=== PATIENT | female | born 1995 | race Caucasian/White ===

== ENCOUNTER 2018-11-28 15:44 | Inpatient (IN) ==
[2018-11-28] MEDS ORDERED: NALBUPHINE HCL 10 MG/ML AMPUL IV PRN (18:20)
[2018-11-28] MEDS ORDERED: RINGER'S SOLUTION,LACTATED 1,000 ML IV ONE (18:20)
[2018-11-28] MEDS ORDERED: MISOPROSTOL 100 MCG TABLET VG PRN (18:20)
[2018-11-28] MEDS ORDERED: LIDOCAINE HCL 50 ML VIAL PERI PRN (18:20)
[2018-11-28] MEDS ORDERED: ONDANSETRON 4 MG TAB.RAPDIS PO PRN (18:20)
[2018-11-28] MEDS ORDERED: OXYTOCIN/DEXTROSE 5%-WATER 30 UNITS/500 ML BAG IV ONE (18:20)
[2018-11-28 19:13] LABS: Cocaine Ur Negative (NEGATIVE); Urine Barbiturate Negative (NEGATIVE); Urine Benzodiazepines Negative (NEGATIVE); Urine Opiates Negative (NEGATIVE); Urine PCP Negative (NEGATIVE); Urine THC Negative (NEGATIVE)
[2018-11-28] MEDS: RINGER'S SOLUTION,LACTATED 1,000 ML IV PRN (20:15)
[2018-11-29] MEDS: RINGER'S SOLUTION,LACTATED 1,000 ML IV PRN ×3 (03:58→23:03)
--- NOTE | 2018-11-29 08:56 | HP ---
Chief Complaint - Chief Complaint Date of Service: 11/29/18 Time of Service: 08:49 Chief Complaint: Induction of labor History of Present Illness: 23 yo @ 40w 3d who presents to labor and delivery for a medical induction of labor due to post due date. She denies vaginal bleeding or loss of fluid. She is florecita on pitocin. Fetus is active. Medical History (Last Reviewed 11/27/18 @ 09:19 by Abhishek Beal RN) Anxiety Onset Date: Unknown History of wisdom tooth extraction Pharyngitis Onset Date: ~10/03/12 Soft tissue injury of back Onset Date: ~06/30/14 Chiari malformation Onset Date: ~2011 Surgical History: Surgical History (Last Reviewed 11/27/18 @ 09:19 by Abhishek Beal RN) No pertinent past surgical history History of tympanoplasty Onset Date: ~1997 Family History: Family History (Last Reviewed 11/27/18 @ 09:19 by Abhishek Beal RN) Mother Alive and well Father Alive and well Grandfather Cancer Lung CA Social History: Preferred Language Sinhala Smoking Status Never smoker (Last Updated 11/27/18 @ 11:50 by Alexa Steward MD) No Social History Section defined Review Of Systems (GEN) - Review of Systems Generalized/Overall Review: Present: No Symptoms Reported Misc: All systems neg except as marked Allergies/Adverse Reactions: Allergies Allergy/AdvReac Type Severity Reaction Status Date / Time No Known Allergies Allergy Verified 11/27/18 09:19 Home Medications: HOME MEDICATIONS vitamin,calcium,eufhzrdz-udrn-czsng acid tablet 1 tab PO DAILY 05/10/18 [Last Taken 11/28/18] calcium carbonate 200 mg calcium (500 mg) chewable tablet 200 mg PO TID tab 07/30/18 [Last Taken 11/28/18] omeprazole 20 mg capsule,delayed release 20 mg PO DAILY #30 cap 08/27/18 [Last Taken 11/28/18] Exam - Exam Vital Signs: Vital Signs - Last Taken Temp 36.5 C 11/28/18 19:09 Pulse 96 11/28/18 19:09 Resp 16 11/28/18 19:09 BP 128/84 11/28/18 19:09 Pulse Ox 97 11/28/18 19:09 Constitutional: Present: Alert, Oriented x3, Cooperative, No distress Respiratory: Present: lungs clear, normal breath sounds Cardiovascular/Chest: Present: regular rate, rhythm, no murmur Abdomen: Present: soft, nontender, nondistended Extremity: Present: non-tender, no calf tenderness Skin Exam: Present: normal color, warm/dry, no cyanosis Appearance: Present: appropriate appearance Eye contact: Present: cooperative Thoughts: Present: normal thought pattern Diagnostic Studies: Laboratory Results Urine Opiates Screen Negative (NEGATIVE) 11/28/18 Unknown Barbiturate Screen Negative (NEGATIVE) 11/28/18 Unknown Ur Phencyclidine Scrn Negative (NEGATIVE) 11/28/18 Unknown Urine Amphetamine Negative (NEGATIVE) 11/28/18 Unknown U Benzodiazepines Scrn Negative (NEGATIVE) 11/28/18 Unknown Urine Cocaine Screen Negative (NEGATIVE) 11/28/18 Unknown Urine Marijuana (THC) Negative (NEGATIVE) 11/28/18 Unknown Blood Type AB Positive 11/28/18 18:50 Antibody Screen Negative 11/28/18 18:50 Assessment/Plan - Narrative Narrative: 23 yo @ 40w 3d On pitocin at 14 milliunits/min Her cervix is 2/80/-1. AROM for a large amount of clear fluid GBS negative: prophylaxis not indicated Continue to titrate pitocin up
[2018-11-29] MEDS: NALBUPHINE HCL 10 MG/ML AMPUL IV PRN ×2 (12:05→13:22)
[2018-11-29] MEDS ORDERED: BUPIVACAINE HCL/0.9 % NACL/PF 250 ML EP PRN (14:43)
[2018-11-29] MEDS ORDERED: NALOXONE HCL 1 MG/1 ML SYRG IV PRN (14:43)
[2018-11-29] MEDS ORDERED: ONDANSETRON HCL/PF 2 MG/ML VIAL IV PRN (14:43)
[2018-11-29] MEDS ORDERED: fentaNYL CITRATE/PF 50 MCG/ML AMPUL IT SCH (14:45)
[2018-11-29] MEDS ORDERED: LIDOCAINE HCL/EPINEPHRINE 20 ML VIAL ONE (15:21)
--- NOTE | 2018-11-29 15:51 | ANES ---
Anesthesia Pre Procedure Eval Vitals/Labs: Last Vital Signs Temp 36.5 C 11/28/18 19:09 Pulse 96 11/28/18 19:09 Resp 16 11/28/18 19:09 BP 128/84 11/28/18 19:09 Pulse Ox 97 11/28/18 19:09 HOME MEDICATIONS vitamin,calcium,stkkpulg-aqkf-roynf acid tablet 1 tab PO DAILY 05/10/18 [Last Taken 11/28/18] calcium carbonate 200 mg calcium (500 mg) chewable tablet 200 mg PO TID tab 07/30/18 [Last Taken 11/28/18] omeprazole 20 mg capsule,delayed release 20 mg PO DAILY #30 cap 08/27/18 [Last Taken 11/28/18] Allergies/Adverse Reactions: Allergies Allergy/AdvReac Type Severity Reaction Status Date / Time No Known Allergies Allergy Verified 11/27/18 09:19 - Planned Procedure Planned Procedure: ELECTIVE INDUCTION Medication List Reviewed:: Yes Allergies Verified: Yes Medical History (Last Reviewed 11/29/18 @ 15:51 by Rob Alvarez CRNA) Anxiety Onset Date: Unknown History of wisdom tooth extraction Pharyngitis Onset Date: ~10/03/12 Soft tissue injury of back Onset Date: ~06/30/14 Chiari malformation Onset Date: ~2011 Surgical History (Last Reviewed 11/29/18 @ 15:51 by Rob Alvarez CRNA) No pertinent past surgical history History of tympanoplasty Onset Date: ~1997 Family History (Last Reviewed 11/29/18 @ 15:51 by Rob Alvarez CRNA) Mother Alive and well Father Alive and well Grandfather Cancer Lung CA - Family Anesthesia History Family History:: no untoward family reactions to anesthesia - Airway/Neck/Teeth Within Normal Limits:: Yes Teeth Condition: intact Neck Exam: full range of motion Mallampatti Score: 2 Thyromental (T-M) distance: > 6 cm Mandibulo Hyoid distance: > 3 cm - Respiratory Respiratory Physical: lungs clear Smoking Status: Never smoker Sleep Apnea currently treated: No Sleep Apnea by current assessment: No - Cardiovascular Tolerate Activity: Good Heart Sounds: S1 & S2, Regular - Anesthesia Assessment and Plan ASA Class: PS, II, E Anesthesia Type Plan: Epidural Planned difficult intubation/equipment available: No
--- NOTE | 2018-11-29 15:52 | ANES ---
Post Anesthesia Discharge - Transfer of Care Transfer of Care handoff given to nurse: Yes - Care transferred to OB RN
--- NOTE | 2018-11-29 15:52 | ANES ---
Post Anesthesia Assessment - Vital Signs Vitals: Last Vital Signs Temp 36.5 C 11/28/18 19:09 Pulse 96 11/28/18 19:09 Resp 16 11/28/18 19:09 BP 128/84 11/28/18 19:09 Pulse Ox 97 11/28/18 19:09 Airway Patency: Normal - Mental Status Level Of Consciousness: Awake - Pain Level Pain Score: 2 - N/V Assessment Nausea/Vomiting Presence: None Dehydration:: No
--- NOTE | 2018-11-29 15:54 | ANES ---
Anesthesia Procedure Note Procedure Note: ANESTHESIA PROCEDURE NOTE Date of Procedure: 11/29/2018 Time of procedure: 1530. Performed by: Jam Alvarez CRNA Material Liaison: None. Preprocedure diagnosis: Active labor. Post procedure diagnosis: Same. Procedure: Insertion of labor epidural. Indications: The patient is a 23-year-old prima para female in active labor requesting labor epidural for pain management. Findings: See below. Details of the procedure: The patient was placed in a sitting position. Back was prepped with DuraPrep. Patient was then draped in a sterile fashion. Lidocaine 1% was infiltrated to the skin and subcutaneous tissues at the level of the L3 4 interspace. The epidural space was identified using a 18-gauge Tuohy needle with ktxn-[id number] technique. 20 mcg fentanyl was given intrathecally using a 27 ga. spinal needle. Epidural catheter was inserted without difficulty. Negative test dose was elicited using 3 mL of 2% preservative-free lidocaine plus epinephrine 1 200,000. The epidural catheter was then taped and secured in place. EBL: Minimal. Fluids: N/A. Specimen: N/A. Post procedure condition: The patient tolerated the procedure well. No complications were noted. Thank you for this consultation. Teixeira CRNA
[2018-11-30] MEDS ORDERED: LIDOCAINE HCL 50 ML VIAL ONE ×2 (02:25→03:44)
[2018-11-30] MEDS ORDERED: oxyCODONE HCL/ACETAMINOPHEN 1 TAB TABLET ONE (03:12)
[2018-11-30] MEDS ORDERED: SENNOSIDES 8.6 MG TABLET PO PRN (03:13)
[2018-11-30] MEDS ORDERED: oxyCODONE HCL/ACETAMINOPHEN 1 TAB TABLET PO PRN (03:13)
[2018-11-30] MEDS ORDERED: HYDROCORTISONE 30 APPL TUBE TP PRN (03:13)
[2018-11-30] MEDS ORDERED: BISACODYL 10 MG SUPP.RECT RC PRN (03:13)
[2018-11-30] MEDS ORDERED: GLYCERIN/WITCH HAZEL LEAF 40 APPL BOX TP PRN (03:13)
[2018-11-30] MEDS ORDERED: OXYTOCIN/DEXTROSE 5%-WATER 30 UNITS/500 ML BAG IV ONE (03:13)
[2018-11-30] MEDS ORDERED: BENZOCAINE/MENTHOL 81 SPRAY CAN TP PRN (03:13)
--- NOTE | 2018-11-30 03:13 | OR ---
Operative Report - Dictated Report Narrative: Date of delivery: 11/30/2018 Time of delivery: 0208 Gender: male APGARS: 0/0/0 The patient is a 23 year old @ 40w 4d who presented for induction of labor due to post due date. She was started on pitocin on admission. Labor was augmented with AROM. She progressed to complete dilation. She delivered a male in the direct OA position. There was a tight nuchal cord that was cut and clamped at the perineum. A large amount of thick meconium was noted. The rest of the infant was delivered atraumatically. The infant was immediately taken to the warmer for resuscitation. Resuscitation was undertaken for 45 minutes and there was never a heart rate present. A heart rate was present immediately before delivery. The placenta was removed by expression and appeared intact. The placenta is to be sent for pathological analysis. A third degree perineal laceration was noted and repaired in the standard surgical fashion. A rectal exam was performed to rule out a 4th degree laceration. The rectum was intact. EBL: 100 mL Complications: stillbirth Specimens: placenta to pathology
--- NOTE | 2018-11-30 03:31 | PN ---
Progess Note - Interim Date: 11/30/18 Time: 03:31 Narrative: 11/30/18 03:31 Stillbirth labs ordered for patient and will be drawn in the morning
[2018-11-30] MEDS: oxyCODONE HCL/ACETAMINOPHEN 1 TAB TABLET PO PRN ×2 (03:32→15:36)
[2018-11-30] MEDS ORDERED: ZOLPIDEM TARTRATE 10 MG TABLET PO ONE (04:22)
[2018-11-30 05:08] LABS: Hematocrit 33.8 % (37.0-47.0); Hemoglobin 11.3 gm/dL (12.5-16.0); Mean Cell Volume 88.9 fl (78-100); Mean Corpuscular Hemoglobin 29.7 pg (27-31); Mean Corpuscular Hgb Conc 33.4 g/dl (32-36); Mean Platelet Volume 10.8 fl (8-12.5); Platelet Count 214 K/mm3 (150-450); Red Cell Distribution Width 13.2 % (11.5-14.0); White Blood Count 22.8 K/mm3 (4.0-10.5)
[2018-11-30 05:17] LABS: Total Cells Counted 100
[2018-11-30 05:44] LABS: Band 10 % (0-2.0); Lymphocyte 11 % (20-51); Monocyte 3 % (0-9); Neutrophil 76 % (42-75); Neutrophil # 17.3 K/mm3 (1.3-6.0); Platelet Estimate Normal (NORMAL); RBC Morphology Normal (NORMAL)
[2018-11-30] MEDS ORDERED: ceFAZolin SODIUM/DEXTROSE,ISO 2 GM/50 ML BAG IV ONE (08:34)
--- NOTE | 2018-11-30 08:36 | PN ---
Progess Note - Interim Date: 11/30/18 Time: 08:35 Narrative: 11/30/18 08:35 The patient felt warm while she was pushing although she never did develop an intrapartum or a fever. There was tachycardia towards the end of her pushing. She was a pronounced leukocytosis today. Give Ancef 2 grams IV one time for endometritis prophylaxis.
--- NOTE | 2018-11-30 13:28 | PN ---
Subjective - Date and Time Seen Date: 11/30/18 Time: 13:18 Subjective Narrative: Patient does not wish to have any discussion at this point Objective Objective Narrative: See vital signs - Vitals Vitals: Last Vital Signs Temp 36.6 C 11/30/18 11:42 Pulse 88 11/30/18 11:42 Resp 20 11/30/18 11:42 BP 111/71 11/30/18 11:42 Pulse Ox 98 11/30/18 11:42 - Abnormal Lab Findings Abnormal Lab Findings: Abnormal Lab Results 11/30/18 Range/Units 05:09 WBC 22.8 H (4.0-10.5) K/mm3 RBC 3.80 L (4.2-5.4) M/mm3 Hgb 11.3 L (12.5-16.0) gm/dL Hct 33.8 L (37.0-47.0) % Neutrophils % (Manual) 76 H (42-75) % Band Neuts % (Manual) 10 H (0-2.0) % Lymphocytes % (Manual) 11 L (20-51) % Neutrophils # (Manual) 17.3 H (1.3-6.0) K/mm3 - Exam Constitutional: Present: Alert, Oriented x3, No distress Appearance: Present: appropriate appearance Eye contact: Present: cooperative Thoughts: Present: normal thought pattern Cauti Physician Documentation - Urinary Catheter Management Urethral (Orozco) Urethral Indwelling: No Date of Insertion: 11/29/18 Time of Insertion: 16:00 Assessment/Plan Plan Narrative: 23 yo PPD 1 s/p with stillbirth Attempted to explain the events that took place last night but Anette and her partner do not wish to have a discussion at this point Her partner is requesting a second opinion regarding her eye symptoms. I have called Dr. Lane of family medicine and requested a consult from her. Dr. Lane stated that she will see the patient in the afternoon. The patient's was wondering what time was Dr. Lane going to come in. Dr. Lane was called and she reported she will come to see the patient in [address] Lane is currently seeing the patient.
--- NOTE | 2018-11-30 14:04 | CONS ---
[facility] - General Date of Service: 11/30/18 Narrative: Patient delivered a stillborn baby overnight. After the delivery, she noticed having blurry vision of both eyes. Family practice was consulted for a second opinion regarding her vision. At the time of my exam, she feels like her vision is improving. She did not have a significant amount of blood loss during the delivery, and her blood pressure is not significantly elevated. She denies infectious symptoms, and feels ok otherwise, considering the difficult circumstances. On exam, her cranial nerves are intact, and she is able to read signs of the wall. Source: patient Exam Limitations: no limitations - History of Present Illness Allergies/Adverse Reactions: Allergies No Known Allergies Allergy (Verified 11/27/18 09:19) Home Medications: Home Medications Medication Instructions Recorded Last Taken 1 tab PO DAILY 05/10/18 11/28/18 vitamin,calcium,juiugadw-gsos-jibwo acid tablet calcium carbonate 200 mg calcium 200 mg PO TID tab 07/30/18 11/28/18 (500 mg) chewable tablet omeprazole 20 mg capsule,delayed 20 mg PO DAILY #30 cap 08/27/18 11/28/18 release Procedures Other immobilization, pressure, and attention to wound (12/31/07) Medications - Medications Current Medications: Current Medications Lactated Ringer's (Lactated Ringers) 1,000 mls @ 125 mls/hr IV .Q8H PRN PRN Reason: HYDRATION Stop: 12/28/18 18:21 Last Admin: 11/29/18 23:03 Dose: 125 mls/hr Documented by: Oxytocin/Dextrose (Pitocin 30 Units/D5w 500 Ml) 30 units in 500 mls @ 2 mls/hr IV PRN ONE; Protocol Stop: 12/09/18 04:19 Last Admin: 11/28/18 20:18 Dose: 2 mls/hr Documented by: Bupivacaine HCl/Sodium Chloride (Bupivacaine 0.125% In Ns 0.9% Cassette) 250 mls @ 0 mls/hr EP Q24H PRN; Protocol PRN Reason: LABOR PAIN Stop: 12/29/18 14:44 Last Admin: 11/29/18 16:12 Dose: 10 mls/hr Documented by: Nalbuphine HCl (Nubain) 10 mg IV Q1H PRN PRN Reason: Pain Stop: 12/28/18 18:21 Last Admin: 11/29/18 13:22 Dose: 10 mg Documented by: Oxycodone/Acetaminophen (Percocet 5 Mg/325 Mg) 1 tab PO Q3H PRN PRN Reason: Moderate Pain (pain scale 4-6) Stop: 12/30/18 03:14 Last Admin: 11/30/18 03:32 Dose: 1 tab Documented by: Physical Examination - Exam Vital Signs: Vital Signs - Last Taken Temp 36.6 C 11/30/18 11:42 Pulse 88 11/30/18 11:42 Resp 20 11/30/18 11:42 BP 111/71 11/30/18 11:42 Pulse Ox 98 11/30/18 11:42 O2 Oxygen Delivery Method Room Air Constitutional: Present: Alert, Oriented x3, Cooperative, Well developed Eye Exam: bilateral eye: EOMI Respiratory: Present: normal breath sounds Cardiovascular/Chest: Present: regular rate, rhythm Neurologic: Present: control clerk head II-XII nml as tested, other - negative Romberg, tandem walk Eye contact: Present: cooperative, good eye contact - Results and Findings: Lab/Microbiology results last 24 hrs: Abnormal/Pending Laboratory Last 24 HRS 11/30/18 05:09 WBC 22.8 H RBC 3.80 L Hgb 11.3 L Hct 33.8 L Neutrophils % (Manual) 76 H Band Neuts % (Manual) 10 H Lymphocytes % (Manual) 11 L Neutrophils # (Manual) 17.3 H - Assessments/Findings (1) Blurred vision, bilateral Diagnosis(s): Her vision changes are likely secondary to her extreme stress. Her symptoms are improving. She is able to read letters on the wall while wearing her glasses. Discussed the likelihood of stress being the source, and she is comfortable with no further investigation. Will see her again in the morning. Problem: Acute
[2018-11-30] MEDS: IBUPROFEN 800 MG TABLET PO PRN (15:35)
[2018-11-30] MEDS: DOCUSATE SODIUM 100 MG CAPSULE PO SCH ×2 (15:35→21:43)
[2018-11-30] MEDS ORDERED: ZOLPIDEM TARTRATE 10 MG TABLET PO PRN (19:37)
--- NOTE | 2018-12-01 07:54 | PN ---
Silvia Note - Interim Date: 12/01/18 Time: 07:52 Narrative: 12/01/18 07:52 Patient reports she did not sleep well overnight. Her blurry vision has resolved. She feels ready to go home today. Her vision changes were likely secondary to the extreme stress, and agree with discharge today.
--- NOTE | 2018-12-01 09:05 | PN ---
Progess Note - Interim Date: 12/01/18 Time: 08:37 Narrative: 12/01/18 08:37 Anette is feeling better today. Her vaginal bleeding is minimal. She does feel sore from pushing. Her mood is ok considering the circumstances. Anette is taking pain medication given her third degree perineal laceration. She is counseled to take colace 100mg PO BID for 2-3 weeks given 3rd degree laceration to keep her stools soft and promote healing. Will also prescribe narcotics for pain control. I explained that given the circumstances the patient is at high risk for mood changes and to contact the office immediately should she experience mood changes that are not allowing her to function or if she has thoughts of harming herself or others. I explained that I do not recommend intercourse for 6 weeks after delivery. She is counseled that could be achieved as soon as 21 days after delivery. I also explained that I can discuss contraceptive options when she comes back for follow up. Given her sleep difficulties I will prescribre a 1 month supply of ambien. Yesterday Anette and her partner were not ready to discuss the events that took place yesterday. However, today they do feel ready to have this discussion. I explained that up to the point of delivery everything was normal and that the heart rate tracing was reassuring. 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 I explained that this could be why once the baby was from mom and the cord was clamped the baby could not transition and breathe on his own. Based on this finding I recommend an autopsy and I explained to the parents that I am hopeful that a cause for the demise would be identified by an autopsy. I also explained that I recommend genetic screening given this finding as well. Given this information the parents are interested in proceeding with an autopsy and genetic screening. We also discussed implications for her next . I explained that if a pulmonary anomaly was present and identified this could better prepare us for the next and depending on the condition we would be able to determine the recurrence risk. Given this I recommend a level 2 ultrasound in [place] with the next . I also explained that I would recommend delivery at 39 weeks with the next as well as antepartum testing. Anette was wondering how antepartum testing is done and I explained that she would come in for twice weekly NSTs and a weekly RICHARD. I explained that if anything was found on antepartum testing then either an ultrasound or delivery would be undertaken depending on the gestational age. All questions were answered and the couple verbalized understanding. Follow-up in 1 week
[2018-12-01] MEDS: oxyCODONE HCL/ACETAMINOPHEN 1 TAB TABLET PO PRN (09:07)
[2018-12-01] MEDS: DOCUSATE SODIUM 100 MG CAPSULE PO SCH (09:07)
[2018-12-01] MEDS: IBUPROFEN 800 MG TABLET PO PRN (09:07)
[2018-12-01 13:05] VITALS: BP 116/72
[2018-12-03 09:07] LABS: Parvo Virus B-19 IgG Antibody 5.06; Parvo Virus B-19 IgM Antibody <0.9
[2018-12-05 03:52] LABS: Cardiolipin Antibody IgA <11 APL; Cardiolipin Antibody IgG <14 GPL
[2018-12-05 08:08] LABS: Phospholipid Serine Ab IgA <20 U/mL
[2018-12-05 08:09] LABS: Cardiolipin Antibody IgM <12 MPL
== END 2018-12-01 11:50 | disposition home or self-care (01) | DRG 768 ==
LOC: OB 18:13 → MS 11-30 12:24
PROVIDERS: ADMIT Obstetrics & Gynecology; ATTEND Obstetrics & Gynecology
CPT/HCPCS: 36415; 59025; 71010; 71045; 80307; 84443; 85007; 85025; 85613; 85730; 86146; 86147; 86148; 86592; 86747; 86850; 86880; 86900; 99465